=== PATIENT | female | born 2005 | race Caucasian/White ===

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

== ENCOUNTER 2023-08-04 14:44 | Outpatient (CLI) | payer SELFPAY ==
--- NOTE | 2023-08-04 14:55 | US_ITS ---
PROCEDURE: US TRANSVAGINAL CLINICAL INDICATION: ACUTE PELVIC PAIN COMPARISON: No exams were available for comparison FINDINGS: Transvaginal sonographic images of the pelvis were obtained. UTERUS: 8.4cm x 5.7 cmx 4.8 cm anteverted with a combined endometrial thickness of 11.4mm. There is a posterior fibroid measuring 1.0 cm x 1.2 cm by 1.0 cm. LEFT OVARY: 5.6 cmx6.1cmx3.4cm with a volume of 60.8ml. There is a complex cyst measuring 4.2 cm x 2.7 cm by 4.3 cm. The fluid within the cyst has a ground-glass appearance consistent with blood. There are solid-appearing areas within the cyst consistent with blood clot. RIGHT OVARY: 3.4cmx 2.6 cmx3.0cm with a volume of 13.9ml. There are several small follicles in the right ovary 3-4 mm in size. Both ovaries are seen. Doppler flow to both ovaries are seen. There is no fluid in the cul-de-sac. IMPRESSION: 1. Anteverted uterus normal in shape and size. 2. There is a posterior fibroid measuring 1.2 cm. 3. Within the left ovary there is a complex mass consistent with a hemorrhagic cyst measuring 4.3 cm. Blood and clot are present. 4. Right ovary has a number of small follicles. 5. No fluid in the cul-de-sac. Dictated by: Santhosh Reeves MD 08/04/2023 17:33 Santhosh Reeves MD in [facility] 08/04/2023 17:33
== END 2023-08-04 23:59 ==
LOC: RAD 14:45
PROVIDERS: PCP Nurse Practitioner Family; Visit Provider Nurse Practitioner Family
DX: R10.2 Pelvic and perineal pain (principal)
CPT/HCPCS: 76830